=== PATIENT | male | born 1990 | race Two or more races ===

== ENCOUNTER 2021-11-08 02:48 | Emergency (ER) | payer OTHER ==
[~2021-11-08] VITALS: Ht 175.3 cm; Wt 68.5 kg
[2021-11-08] MEDS ORDERED: MEDROL8 MG PO (03:38)
[2021-11-08] MEDS ORDERED: BENADRYL25 MG PO (03:38)
== END 2021-11-08 03:47 ==
LOC: ER 02:48
DX: L55.9 Sunburn, unspecified (principal)